=== PATIENT | male | born 1975 | race Hispanic/Latino ===

== ENCOUNTER 2018-11-04 09:13 | Emergency (ER) | payer SELFPAY ==
[~2018-11-04] VITALS: Ht 177.8 cm; Wt 85.3 kg
[2018-11-04] MEDS ORDERED: DEXAMETHASONE SOD PHOS 10 MG/1 ML VIAL IM ONE (10:00)
[2018-11-04] MEDS ORDERED: METHOCARBAMOL 500 MG TAB PO ONE (10:00)
[2018-11-04] MEDS ORDERED: KETOROLAC TROMETHAMINE 60 MG/2 ML VIAL IM ONE (10:00)
[2018-11-04 10:01] VITALS: BP 135/88
== END 2018-11-04 10:15 | disposition home or self-care (01) ==
LOC: ER 09:13
DX: M54.5 Low back pain (principal); M54.16 Radiculopathy, lumbar region
CPT/HCPCS: 99282; J1100; J1885